=== PATIENT | female | born 1950 | race African-American/Black ===

== ENCOUNTER 2023-09-22 09:56 | Emergency (ER) | payer MEDICARE, MEDICAID ==
[~2023-09-22] VITALS: Ht 165.1 cm; Wt 90.0 kg
[2023-09-22 09:59] VITALS: BP 156/92; PULSE 88; RESP 18; TEMP 98.2; O2SAT 100
[2023-09-22 11:33] LABS: BASOPHILS % 0.6 % (0.0-2.0); EOSINOPHILS % 4.1 % (0.0-5.0); HEMATOCRIT. 33.9 % (36.0-48.0); HEMOGLOBIN. 11.3 g/dL (12.0-16.0); LYMPHOCYTES % 24.2 % (20.0-50.0); MEAN CORPUSCULAR HEMOGLOBIN 29.4 pg (28.0-32.0); MEAN CORPUSCULAR HGB CONC 33.3 g/dL (31.0-37.0); MEAN CORPUSCULAR VOLUME 88.2 fL (81.0-99.0); MEAN PLATELET VOLUME 9.9 fl (7.4-10.4); NEUTROPHILS % 61.1 % (40.0-76.0); PLATELET 171 x1000/uL (130-400); RED BLOOD CELL COUNT 3.84 mill/uL (4.2-5.4); RED CELL DISTRIBUTION WIDTH 16.2 % (11.6-14.6); WHITE BLOOD COUNT 5.3 x1000/uL (4.5-11.0)
[2023-09-22 11:34] LABS: CARBON DIOXIDE 26 mEq/L (21-32); CHLORIDE 111 mEq/L (98-107); POTASSIUM 4.1 mEq/L (3.5-5.1); SODIUM 142 mEq/L (136-145)
[2023-09-22 11:35] LABS: CALCIUM 9.9 mg/dL (8.7-10.4)
[2023-09-22 11:40] LABS: GLUCOSE 106 mg/dL (70-105); UREA NITROGEN BLOOD 10 mg/dL (9-23)
[2023-09-22 11:42] LABS: TROPONIN I HIGH SENSITIVITY 17 ng/L (3.0-34)
== END 2023-09-22 16:19 | disposition left against medical advice (07) ==
LOC: ER 09:56
DX: R07.9 Chest pain, unspecified (principal); I25.2 Old myocardial infarction; I11.9 Hypertensive heart disease without heart failure; Y04.0XXA Assault by unarmed brawl or fight, initial encounter; Y93.89 Activity, other specified; Y92.89 Other specified places as the place of occurrence of the external cause; Y99.8 Other external cause status
CPT/HCPCS: 36415; 71045; 80048; 84484; 85025; 93005; 99285